=== PATIENT | male | born 1965 | race Caucasian/White ===

== ENCOUNTER 2018-05-20 11:49 | Emergency (ER) | payer MEDICAID ==
[2018-05-20] MEDS ORDERED: Acetaminophen TAB* 325 MG PO ONE (12:04)
[2018-05-20] MEDS ORDERED: Tetan/Diph/Pertus SYR(Tdap)* 0.5 ML SYR(BOOSTRIX) use SYR IM ONE (12:05)
[2018-05-20] MEDS ORDERED: oxyCODONE TAB* 5 MG TAB PO ONE (12:12)
--- NOTE | 2018-05-20 12:12 | ED ---
Head Injury - HPI Summary HPI Summary: 52-year-old male presents with a right arm and head injury today. He states he tripped and fell down one stair. He struck his head and his right shoulder. He has a laceration noted to his right forearm. Unsure when last tetanus was. He has a past medical condition of a closed head injury that resulted in a coma and so he has visual defects at baseline. He admits to loss consciousness with this injury. No neck pain. No chest pain or shortness of breath. Fall was a mechanical fall. No bowel pain. No back pain. He has abrasion noted to his right shoulder. He is right-handed. not on blood thinners. - History Of Current Complaint Chief Complaint: EDLacSutureRecheck Stated Complaint: FALL ARM INJURY Time Seen by Provider: 05/20/18 11:57 Pain Intensity: 6 - Allergies/Home Medications Allergies/Adverse Reactions: Allergies Allergy/AdvReac Type Severity Reaction Status Date / Time No Known Allergies Allergy Verified 05/20/18 11:55 PMH/Surg Hx/FS Hx/Imm Hx Endocrine/Hematology History: Denies: Hx Anticoagulant Therapy Neurological History: Reports: Other Neuro Impairments/Disorders - closed head injury Infectious Disease History: No Infectious Disease History: Denies: Traveled Outside the [place] in Last 30 Days - Family History Known Family History: Positive: Hypertension Review of Systems Negative: Fever Negative: Chest Pain Negative: Shortness Of Breath Positive: Myalgia - right shoulder pain Positive: Other - laceration Positive: Headache All Other Systems Reviewed And Are Negative: Yes Physical Exam Triage Information Reviewed: Yes Vital Signs On Initial Exam: Initial Vitals Temp Pulse Resp BP Pulse Ox 97.0 F 82 18 155/95 97 05/20/18 11:52 05/20/18 11:52 05/20/18 11:52 05/20/18 11:52 05/20/18 11:52 Vital Signs Reviewed: Yes Appearance: Positive: Well-Appearing Skin: Positive: Warm, Dry, Other - 5cm by 1/2cm laceration to right forearm Head/Face: Positive: Normal Head/Face Inspection, Other - contusion to right side of scalp Eyes: Positive: Normal, EOMI, JUAN, Conjunctiva Clear ENT: Positive: Pharynx normal, TMs normal Respiratory/Lung Sounds: Positive: Clear to Auscultation, Breath Sounds Present Cardiovascular: Positive: Normal, RRR Musculoskeletal: Positive: Strength/ROM Intact - right elbow, Limited @ - right shoulder, Other - abrasions to right shoulder, tenderness right shoulder, good pulses, capillary refill<2 secs, sensation grossly intact Neurological: Positive: Sensory/Motor Intact, Alert, Oriented to Person Place, Time, CN Intact II-III Psychiatric: Positive: Normal - [place] Coma Scale Best Eye Response: 4 - Spontaneous Best Motor Response: 6 - Obeys Commands Best Verbal Response: 5 - Oriented Coma Scale Total: 15 Procedures - Laceration/Wound Repair 1 Location: Other - right arm Description: Linear Anesthesia: Local, 1.0% Length, Depth and Shape: 5cm by 1/2cm Irrigated w/ Saline (ccs): 300 Laceration/Wound Explored: no foreign body removed Closure: Skin Adhesive, Single Layer Suture Type: Prolene Number of Sutures: 3 Layer Closure?: No Sterile Dressing Applied?: No - telfa and randi Diagnostics - Vital Signs Vital Signs Temp Pulse Resp BP Pulse Ox 05/20/18 11:52 97.0 F 82 18 155/95 97 - Laboratory Lab Statement: Any lab studies that have been ordered have been reviewed, and results considered in the medical decision making process. - Radiology shoulder Xray Interpretation: No Acute Changes Radiology Interpretation Completed By: Radiologist - CT brain CT Interpretation: No Acute Changes CT Interpretation Completed By: Radiologist Head Injury Course/Dx Course Of Treatment: 52-year-old male presents with a right arm and head injury today. He states he tripped and fell down one stair. He struck his head and his right shoulder. He has a laceration noted to his right forearm. Unsure when last tetanus was. He has a past medical condition of a closed head injury that resulted in a coma and so he has visual defects at baseline. He admits to loss consciousness with this injury. No neck pain. No chest pain or shortness of breath. Fall was a mechanical fall. No bowel pain. No back pain. He has abrasion noted to his right shoulder. He is right-handed. not on blood thinners. on exam contusion to right side scalp. normal neuro exam. has tenderness right shoulder. has 5cm laceration to right forearm that cleaned and placed 3 sutures in and glue. CT brain normal. shoulder xray normal. gave concussion precautions. patient understand and agrees with plan. - Diagnoses Differential Diagnosis/HQI/PQRI: Concussion Without LOC, Contusion, Intracranial Bleed, Laceration Provider Diagnoses: Head injury, Right shoulder pain, Laceration of right forearm Discharge - Sign-Out/Discharge Documenting (check all that apply): Patient Departure - Discharge Plan Condition: Good Disposition: HOME Patient Education Materials: Care For Your Stitches (ED), Head Injury (ED) Referrals: No Primary Care Phys,NOPCP [Primary Care Provider] - Additional Instructions: Take Tylenol or ibuprofen for pain every 6 hours as needed Keep area clean and dry for 24 hours glue will fall of on one Return to ED or primary in 8-10 days to have sutures removed modify activities as tolerate place ice on shoulder Return to ED if develop any new or worsening symptoms - Billing Disposition and Condition Condition: GOOD Disposition: Home
--- NOTE | 2018-05-20 12:54 | RAD ---
HISTORY: head injury, LOC COMPARISONS: None TECHNIQUE: Multiple contiguous axial CT scans were obtained of the head without intravenous contrast. FINDINGS: HEMORRHAGE/INFARCT: There is no hemorrhage or acute infarct. MASSES/SHIFT: There is no mass or shift. EXTRA-AXIAL SPACES: There are no extra-axial fluid collections. SULCI AND VENTRICLES: The sulci and ventricles are normal in size and position for the patient's stated age. CEREBRUM: There are no focal parenchymal abnormalities. BRAINSTEM: There are no focal parenchymal abnormalities. CEREBELLUM: There are no focal parenchymal abnormalities. VESSELS: The vessels are grossly normal. PARANASAL SINUSES: The paranasal sinuses are clear. ORBITS: The orbits are unremarkable. BONES AND SOFT TISSUE: No bone or soft tissue abnormalities are noted. OTHER: None IMPRESSION: NO ACUTE INTRACRANIAL PATHOLOGY.
--- NOTE | 2018-05-20 13:31 | RAD ---
INDICATION: Right shoulder injury. TECHNIQUE: 4 views of the right shoulder were obtained. FINDINGS: The bones are in normal alignment. No fracture is seen. Joint spaces appear maintained. IMPRESSION: NO EVIDENCE OF FRACTURE.
--- NOTE | 2018-05-20 13:31 | RAD ---
INDICATION: Right humerus injury. TECHNIQUE: 2 views of the right humerus were obtained. FINDINGS: The bones are in normal alignment. No fracture is seen. There are postsurgical changes. There are 3 surgical screws present in the distal humerus. IMPRESSION: POSTSURGICAL CHANGES, NO EVIDENCE FOR ACUTE FRACTURE.
[2018-05-20 14:28] VITALS: BP 138/91
== END 2018-05-20 14:00 | disposition home or self-care (01) ==
LOC: ED 11:49
DX: S09.90XA Unspecified injury of head, initial encounter (principal); S41.111A Laceration without foreign body of right upper arm, initial encounter; W01.0XXA Fall on same level from slipping, tripping and stumbling without subsequent striking against object, initial encounter; Y92.9 Unspecified place or not applicable; R51 Headache
CPT/HCPCS: 12002; 70450; 90471; 90715; 99282; A9270-GY

== ENCOUNTER 2019-04-19 07:11 | Inpatient (IN) | payer MEDICAID, OTHER ==
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
[~2019-04-19 07:11] MED LIST: Buffered Lidocaine 1% SYRIN* 1 ML/SYRINGE INTRADERM ONE; Dexamethasone IV* 4 MG/ML 1 ML (4 MG) IV SLOW PU ONE; Famotidine IV* 10 MG/ML 2 ML (20 mg) IV ONE; Gabapentin CAP(*) 300 MG PO ONE; Lactated Ringers 1000 ML Bag* 1,000 ML IV SCH; Tranexamic Acid 1,000 MG in NS 0.9% 50 ML* (outpatient use) IV SCH; celeCOXIB CAP* 200 MG PO ONE
--- OUTSIDE RECORDS SUMMARY | 2019-04-19 07:15 | XMS REPORT | Continuity of Care Document ---
:1965 External Reference #:[id number] Author Name Renée Pearl Care Team Providers Name Role Phone Patient's Choice Primary Care Physician Unavailable Payers Date Identification Numbers Payment Provider Subscriber Policy Number: [id number] Medicaid Raheme Felipe Group Name: 1 1 [address] PayID: [id number] [place] [address] Effective: 2018 Policy Number: [id number] Gavin Felipe Expires: 2018 PayID: [id number] [address] [place] [address] Problems Active Problems Provider Date Difficulty breathing Geovany Vieira MD Onset: 03/21/2019 Screening for malignant neoplasm of colon Geovany Vieira MD Onset: 03/21/2019 Overweight Geovany Vieira MD Onset: 03/21/2019 Preoperative cardiovascular examination Geovany Vieira MD Onset: 03/21/2019 Localized, primary osteoarthritis Oral Cobos M.D. 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 03/07/2019 7.5mg Tablets mouth twice daily. Forearm Crutches M17Dora Cobos M.D. 12/13/2018 Ibuprofen 200 400-600mg every Unknown 200mg 6 hours as Tablets needed for pain. Aleve 1 tab twice a Unknown 220mg Capsules day as needed Medications Administered in Office Medication SIG Qnty Indications Ordering Provider Date Depomedrol 40MG Oral Cobos M.D. 12/13/2018 Injection Depomedrol 40MG Oral Cobos M.D. 12/13/2018 Injection Vital Signs Date Vital Result Comment 03/21/2019 3:31pm Height 76 inches 6'4" Weight 352.00 lb Heart Rate 86 /min BP Systolic 142 mmHg BP Diastolic 98 mmHg O2 % BldC Oximetry 95 % BMI (Body Mass Index) 42.8 kg/m2 03/07/2019 3:28pm Height 76 inches 6'4" Weight 332.00 lb BP Systolic 140 mmHg BP Diastolic 88 mmHg Respiratory Rate 18 /min Pain Level 8 BMI (Body Mass Index) 40.4 kg/m2 12/13/2018 12:57pm Height 76 inches 6'4" Weight 332.00 lb BP Systolic 128 mmHg BP Diastolic 84 mmHg Respiratory Rate 18 /min Body Temperature 97.9 F Pain Level 10 BMI (Body Mass Index) 40.4 kg/m2 Procedures Date Code Description Status 12/13/2018 17723 Inject/Drain Joint/Bursa Major W/O US Completed Encounters Type Date Location Provider Dx Diagnosis Office Visit 03/07/2019 [facility] Cobos M.D. M17.11 Unilateral primary 3[facility], right knee Office Visit 12/13/2018 [facility] Oral Cobos M.D. M17.11 Unilateral primary 2:[facility] oste[facility], right knee M17.12 Unilateral primary osteoarthritis, left knee Z68.41 Body mass index (BMI) 40.0-44.9, adult E66.3 Overweight Plan of Treatment Future Appointment(s):03/28/2019 2:45 pm - Oral Cobos M.[facility]. at [facility]04/19/2019 7:30 am - Oral Cobos M.D. at [facility]03/21/2019 - Geovany Vieira MDZ01.810 Encounter for preprocedural cardiovascular examinationFollow up:as needed.M17.11 Unilateral primary osteoarthritis, right kneeE66.3 HsumxecarwZ70.11 Encounter for screening for malignant neoplasm of colonReferral:Jamey Mcgrath MD, JiglnmcrmvcljtqdI73.83 SnoringNew Orders:Sleep Study, Ordered: 03/21/19Referral:No Doctor Selected
--- OUTSIDE RECORDS SUMMARY | 2019-04-19 07:15 | XMS REPORT | Continuity of Care Document ---
:1965 External Reference #:[id number] Author Name Carli Garcia Care Team Providers Name Role Phone Geovany Vieira MD Primary Care Physician Unavailable Payers Date Identification Numbers Payment Provider Subscriber Policy Number: [id number] Medicaid Raheem Felipe Group Name: 1 1 [address] PayID: [id number] [place] [address] Effective: 2018 Policy Number: [id number] Gavinjose Felipe Expires: 2018 PayID: [id number] [address] [place] [address] Problems Active Problems Provider Date Localized, primary osteoarthritis Oral Cobos M.D. 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 2018 en mouth every 4 5-325mg Tablets hours as needed pain Meloxicam take 1 tablet by 60tabs Sebastian Cobos M.D. 03/07/2019 7.5mg Tablets mouth twice daily. Forearm Crutches Gabe7.James Cobos M.D. 12/13/2018 History Medications Ibuprofen 200 400-600mg every 6 hours Unknown - 03/29/2019 200mg Tablets as needed for pain. Aleve 1 tab twice a day as Unknown - 04/05/2019 220mg Capsules needed Medications Administered in Office Medication SIG Qnty Indications Ordering Provider Date Depomedrol 40MG Oral Cobos M.D. 12/13/2018 Injection Depomedrol 40MG Oral Cobos M.D. 12/13/2018 Injection Vital Signs Date Vital Result Comment 04/05/2019 9:09am Height 76 inches 6'4" Weight 352.00 lb Heart Rate 77 /min BP Systolic 129 mmHg BP Diastolic 90 mmHg O2 % BldC Oximetry 96 % BMI (Body Mass Index) 42.8 kg/m2 03/28/2019 2:40pm Height 76 inches 6'4" Weight 351.00 lb Heart Rate 88 /min BP Systolic 140 mmHg BP Diastolic 90 mmHg Pain Level 8 BMI (Body Mass Index) 42.7 kg/m2 03/21/2019 3:31pm Height 76 inches 6'4" Weight [...] 10 BMI (Body Mass Index) 40.4 kg/m2 Results Test Date Facility Test Result H/L Range Note CBC Auto Diff 03/21/2019 [facility] White Blood 11.2 10^3/uL High 3.5-10.[address] [place] [address] [phone] Red Blood Count 4.79 10^6/uL Normal 4.18-5.48 Hemoglobin 13.0 g/dL Low 14.0-18.0 Hematocrit 39 % Low 42-52 Mean Corpuscular Volume 82 fL Normal 80-94 Mean Corpuscular Hemoglobin 27 pg Normal 27-31 Mean Corpuscular HGB Conc 33 g/dL Normal 31-36 Red Cell Distribution Width 15 % Normal 10-15 Platelet Count 326 10^3/uL Normal 150-450 Mean Platelet Volume 7.5 fL Normal 7.4-10.4 Abs Neutrophils 7.8 10^3/uL High 1.5-7.7 Abs Lymphocytes 2.4 10^3/uL Normal 1.0-4.8 Abs Monocytes 0.7 10^3/uL Normal 0-0.8 Abs Eosinophils 0.1 10^3/uL Normal 0-0.6 Abs Basophils 0.1 10^3/uL Normal 0-0.2 Abs Nucleated RBC 0.0 10^3/uL Granulocyte % 70.1 % Lymphocyte % 21.6 % Monocyte % 6.4 % Eosinophil % 1.0 % Basophil % 0.9 % Nucleated Red Blood Cells % 0.0 Comp Metabolic 03/21/2019 [facility] Sodium 140 mmol/L Normal 135-[address] [place] [address] [phone] Potassium 3.9 mmol/L Normal 3.5-5.0 Chloride 106 mmol/L Normal 101-111 Co2 Carbon Dioxide 26 mmol/L Normal 22-32 Anion Gap 8 mmol/L Normal 2-11 Glucose 102 mg/dL High 70-100 Blood Urea Nitrogen 15 mg/dL Normal 6-24 Creatinine 0.86 mg/dL Normal 0.67-1.17 BUN/Creatinine Ratio 17.4 Normal 8-20 Calcium 9.6 mg/dL Normal 8.6-10.3 Total Protein 7.1 g/dL Normal 6.4-8.9 Albumin 4.4 g/dL Normal 3.2-5.2 Globulin 2.7 g/dL Normal 2-4 Albumin/Globulin Ratio 1.6 Normal 1-3 Total Bilirubin 0.50 mg/dL Normal 0.2-1.0 Alkaline Phosphatase 81 U/L Normal 34-104 Alt 17 U/L Normal 7-52 Ast 21 U/L Normal 13-39 Egfr Non- 93.8 >60 Egfr 113.4 >60 1 Inr/Protime 03/21/2019 [facility] Inr 1.01 Normal 0.82-1.[address] [place] [address] [phone] Urinalysis 03/21/2019 [facility] Urine Yellow Profile [address] [place] [address] [phone] Urine Appearance Cloudy Urine Specific Chase 1.030 Normal 1.010-1.030 Urine pH 5.0 Normal 5-9 Urine Urobilinogen Negative Negative Urine Ketones Negative Negative Urine Protein Negative Negative Urine Leukocytes Negative Negative Urine Blood Negative Negative Urine Nitrite Negative Negative Urine Bilirubin Negative Negative Urine Glucose Negative Negative 1 Because ethnic data is not always readily available, this report includes an eGFR for both -Americans and non- Americans. The National Kidney Disease Education Program (NKDEP) does not endorse the use of the MDRD equation for patients that are not between the ages of 18 and 70, are , have extremes of body size, muscle mass, or nutritional status, or are non- or non-. According to the National Kidney Foundation, irrespective of diagnosis, the stage of the disease is based on the level of kidney function: Stage Description GFR(mL/min/1.73 m(2)) 1 Kidney damage with normal or decreased GFR 90 2 Kidney damage with mild decrease in GFR 60-89 3 Moderate decrease in GFR 30-59 4 Severe decrease in GFR 15-29 5 Kidney failure <15 (or dialysis) 2 Standard intensity warfarin therapeutic range: 2.0-3.0 High intensity warfarin therapeutic range: 2.5-3.5 Procedures Date Code Description Status 03/21/2019 04505 EKG Tracing & Interpretation Completed 12/13/2018 60015 Inject/Drain Joint/Bursa Major W/O US Completed Encounters Type Date Location Provider Dx Diagnosis Office Visit 03/07/2019 [facility] Cobos M.D. M17.11 Unilateral primary 3:[facility] oste[facility], right knee Office Visit 12/13/2018 [facility] Oral Cobos M.D. M17.11 Unilateral primary 2:00[facility] osteoarthritis, right knee M17.12 Unilateral primary osteoarthritis, left knee Z68.41 Body mass index (BMI) 40.0-44.9, adult E66.3 Overweight Plan of Treatment Future Appointment(s):05/30/2019 2:00 pm - Jamey Mcgrath MD at [facility] Neeafbvsfusvjjkk92/13/2019 7:30 am - JOSE Montero at [facility]05/16/2019 10:30 am - Oral Cobos M[facility]. [facility]/19/2019 7:30 am - Oral Cobos M.D. [facility]
--- OUTSIDE RECORDS SUMMARY | 2019-04-19 07:15 | XMS REPORT | Continuity of Care Document ---
:1965 External Reference #:[id number] Author Name Kassidy House Care Team Providers Name Role Phone Patient's Choice Primary Care Physician Unavailable Payers Date Identification Numbers Payment Provider Subscriber Policy Number: [id number] Medicaid Raheem Felipe Group Name: 1 1 [address] PayID: [id number] [place] [address] Effective: 2018 Policy Number: [id number] Gavinjose Felipe Expires: 2018 PayID: [id number] [address] [place] [address] Problems Active Problems Provider Date Ex-smoker Geovany Vieira MD Onset: 03/21/2019 Difficulty breathing [...] a former smoker Unknown Smoking Status Reviewed: 03/28/19 Patient is a former smoker Exercise Type/Frequency Exercises sporadically Allergies, Adverse Reactions, Alerts Description No Known Drug Allergies Medications Active Medications SIG Qnty Indications Ordering Provider Date Oxycodone-Acetaminoph 1-2 tabs by 42tabs M17.11 Oral Cobos M.D. 2018 en mouth every 4 5-325mg Tablets hours as needed pain Meloxicam take 1 tablet by 60tabs M17.11 Oral Cobos M.D. 03/07/2019 7.5mg Tablets mouth twice daily. Forearm Crutches M17.11 Oral Cobos M.D. 12/13/2018 Aleve 1 tab twice a Unknown 220mg Capsules day as needed History Medications Ibuprofen 200 400-600mg every 6 hours Unknown - 03/29/2019 200mg Tablets as needed for pain. Medications Administered in Office Medication SIG Qnty Indications Ordering Provider Date Depomedrol 40MG Oral Cobos M.D. 12/13/2018 Injection Depomedrol 40MG Oral Cobos M.D. 12/13/2018 Injection Vital Signs Date Vital Result Comment 03/28/2019 2:40pm Height 76 inches 6'4" Weight [...] H/L Range Note CBC Auto Diff 03/21/2019 [facility] White Blood 11.2 10^3/uL High 3.5-10.[address] [place] [address] [phone] Red Blood Count 4.79 10^6/uL N 4.18-5.48 Hemoglobin 13.0 g/dL Low 14.0-18.0 Hematocrit 39 % Low 42-52 Mean Corpuscular Volume 82 fL N 80-94 Mean Corpuscular Hemoglobin 27 pg N 27-31 Mean Corpuscular HGB Conc 33 g/dL N 31-36 Red Cell Distribution Width 15 % N 10-15 Platelet Count 326 10^3/uL N 150-450 Mean Platelet Volume 7.5 fL N 7.4-10.4 Abs Neutrophils 7.8 10^3/uL High 1.5-7.7 Abs Lymphocytes 2.4 10^3/uL N 1.0-4.8 Abs Monocytes 0.7 10^3/uL N 0-0.8 Abs Eosinophils 0.1 10^3/uL N 0-0.6 Abs Basophils 0.1 10^3/uL N 0-0.2 Abs Nucleated RBC 0.0 10^3/uL Granulocyte % 70.1 % Lymphocyte % 21.6 % Monocyte % 6.4 % Eosinophil % 1.0 % Basophil % 0.9 % Nucleated Red Blood Cells % 0.0 Comp Metabolic Panel 03/21/2019 [facility] Sodium 140 mmol/L N 135-[address] [place] [address] [phone] Potassium 3.9 mmol/L N 3.5-5.0 Chloride 106 mmol/L N 101-111 Co2 Carbon Dioxide 26 mmol/L N 22-32 Anion Gap 8 mmol/L N 2-11 Glucose 102 mg/dL High 70-100 Blood Urea Nitrogen 15 mg/dL N 6-24 Creatinine 0.86 mg/dL N 0.67-1.17 BUN/Creatinine Ratio 17.4 N 8-20 Calcium 9.6 mg/dL N 8.6-10.3 Total Protein 7.1 g/dL N 6.4-8.9 Albumin 4.4 g/dL N 3.2-5.2 Globulin 2.7 g/dL N 2-4 Albumin/Globulin Ratio 1.6 N 1-3 Total Bilirubin 0.50 mg/dL N 0.2-1.0 Alkaline Phosphatase 81 U/L N 34-104 Alt 17 U/L N 7-52 Ast 21 U/L N 13-39 Egfr Non- 93.8 >60 Egfr 113.4 >60 1 Inr/Protime 03/21/2019 [facility] Inr 1.01 N 0.82-1.[address] [place] [address] [phone] Urinalysis Profile 03/21/2019 [facility] Urine Color Yellow [address] [place] [address] [phone] Urine Appearance Cloudy Urine Specific [place] 1.030 N 1.010-1.030 Urine pH 5.0 N 5-9 Urine Urobilinogen Negative Negative Urine Ketones [...] 2.5-3.5 Procedures Date Code Description Status 03/21/2019 50042 EKG Tracing & Interpretation Completed 12/13/2018 94366 Inject/Drain Joint/Bursa Major W/O US Completed Encounters Type Date Location Provider Dx Diagnosis Office Visit 03/07/2019 Curt Cobos M.D. M17.11 Unilateral primary 3:[facility] osteoarthritis, right knee Office Visit 12/13/2018 Curt Cobos M.D. M17.11 Unilateral primary 2:00[facility] osteoarthritis, right knee M17.12 Unilateral primary osteoarthritis, left knee Z68.41 Body mass index (BMI) 40.0-44.9, adult E66.3 Overweight Plan of Treatment Future Appointment(s):05/16/2019 10:30 am - Oral Cob[facility] at [facility]04/19/2019 7:30 am [facility] - Oral Cobos M.D.M17.11 Unilateral primary osteoarthritis, right kneeNew Medication:Oxycodone-Acetaminophen 5-325 mg - 1-2 tabs by mouth every 4 hours as needed painFollow up:Follow up:
--- OUTSIDE RECORDS SUMMARY | 2019-04-19 07:15 | XMS REPORT | Continuity of Care Document ---
:1965 External Reference #:[id number] Author Name Sophie Connolly Care Team Providers Name Role Phone Patient's Choice Primary Care Physician Unavailable Payers Date Identification Numbers Payment Provider Subscriber Policy Number: [id number] Medicaid Raheem Felipe Group Name: 1 1 [address] PayID: [id number] [place] [address] Effective: 2018 Policy Number: [id number] Gavin Felipe Expires: 2018 PayID: [id number] [address] [place] [address] Problems Active Problems Provider Date Difficulty breathing [...] Indications Ordering Provider Date Oxycodone-Acetaminoph 1-2 tabs po q 4 60tabs M17.11 Oral Cobos M.D. 03/28 en hrs prn pain 5-325mg Tablets Meloxicam take 1 tablet by 60tabs M17.11 Oral Cobos M.D. 03/07/2019 7.5mg Tablets mouth twice daily. Forearm Crutches M17.11 Oral Cobos M.D. 12/13/2018 Ibuprofen 200 400-600mg every [...] H/L Range Note CBC Auto Diff 03/21/2019 [facility] White Blood 11.2 10^3/uL High 3.5-10.[address] [place] [address] [phone] Red Blood Count 4.79 10^6/uL N 4.18-5.48 [...] Cells % 0.0 Comp Metabolic Panel 03/21/2019 [facility] Sodium 140 mmol/L N 135-145 [address] [place] [address] [phone] Potassium 3.9 mmol/L N 3.5-5.0 Chloride 106 [...] >60 Egfr 113.4 >60 1 Inr/Protime 03/21/2019 [facility] Inr 1.01 N 0.82-1.09 [address] [place] [address] [phone] Urinalysis Profile 03/21/2019 [facility] Urine Color Yellow [address] [place] [address] [phone] Urine Appearance Cloudy Urine Specific [place] 1.030 N 1.010-1.030 Urine pH 5.0 N [...] range: 2.5-3.5 Procedures Date Code Description Status 12/13/2018 66992 Inject/Drain Joint/Bursa Major W/O US Completed Encounters Type Date Location Provider Dx Diagnosis Office Visit 03/07/2019 Curt Cobos M.D. M17.11 Unilateral primary 3:[facility], right knee Office Visit 12/13/2018 Curt Cobos M.D. M17.11 Unilateral primary 2:[facility], right knee M17.12 Unilateral primary osteoarthritis, left knee Z68.41 Body mass index (BMI) 40.0-44.9, adult E66.3 Overweight Plan of Treatment Future Appointment(s):05/16/2019 10:30 am - [facility]/05/2019 9:15 am - Ani Lopez NP at [facility]/13/2019 10:00 am - [facility] - Oral Cobos M.D.M17.11 Unilateral primary osteoarthritis, right kneeNew Medication:Oxycodone-Acetaminophen 5-325 mg - 1-2 tabs po q 4 hrs prn painFollow up:Follow up:
[2019-04-19] MEDS ORDERED: Dexamethasone IV* 4 MG/ML 1 ML (4 MG) ONE ×2 (08:40→08:57)
[2019-04-19] MEDS ORDERED: Buffered Lidocaine 1% SYRIN* 1 ML/SYRINGE INTRADERM ONE (08:41)
[2019-04-19] MEDS ORDERED: Famotidine IV* 10 MG/ML 2 ML (20 mg) ONE (08:41)
[2019-04-19] MEDS ORDERED: Gabapentin CAP(*) 300 MG ONE (08:41)
[2019-04-19] MEDS ORDERED: ceFAZolin 1 GM ADVAN(*) 1 GM ADDV.VIAL IVPB ONE (08:41)
[2019-04-19] MEDS ORDERED: celeCOXIB CAP* 200 MG ONE (08:41)
[2019-04-19] MEDS ORDERED: ceFAZolin 2 GM in NS PREMIX(*) 2 GM/100 ML BAG IVPB ONE (08:42)
[2019-04-19] MEDS ORDERED: Midazolam* 1 MG/ML 5 ML VIAL (5 MG) ONE (10:55)
[2019-04-19] MEDS ORDERED: fentaNYL* 50 MCG/ML 2 ML VIAL (100 MCG VIAL) ONE ×7 (10:55→16:23)
[2019-04-19] MEDS ORDERED: ROPIVACAINE 5 MG/ML 30 ML BTL (0.5%) ONE (10:56)
[2019-04-19] MEDS ORDERED: Bupivacaine 0.5% SDV PF* 30ML VIAL ONE (11:21)
[2019-04-19] MEDS ORDERED: Succinylcholine* 20 MG/ML 10 ML VIAL ONE (11:46)
[2019-04-19] MEDS ORDERED: Lidocaine 2% PF * 5 ML VIAL ONE (11:46)
[2019-04-19] MEDS ORDERED: Propofol* 10 MG/ML 20 ML BTL ONE (11:46)
[2019-04-19] MEDS ORDERED: KETAMINE HCL* 50 MG/ML 10 ML VIAL ONE (11:57)
[2019-04-19] MEDS ORDERED: PROCHLORPERAZINE INJ 5 MG/ML 2 ML VIAL IV PRN (12:46)
[2019-04-19] MEDS ORDERED: Naloxone* 0.4 MG/ML 1 ML VIAL IV PRN (12:46)
[2019-04-19] MEDS ORDERED: hydrALAZINE IV* 20 MG/ML VIAL ONE (12:52)
[2019-04-19] MEDS ORDERED: Bupivacaine 0.25% W/EPI* 10 ML SDV ONE (13:53)
[2019-04-19] MEDS ORDERED: Ondansetron INJ* 2 MG/ML VIAL ONE (14:00)
[2019-04-19] MEDS ORDERED: diPHENhydraMINE IV* 50 MG/ML 1 ml VIAL (BENADRYL) IV PRN (14:52)
[2019-04-19] MEDS ORDERED: Ondansetron INJ* 2 MG/ML VIAL IV PRN (14:52)
[2019-04-19] MEDS ORDERED: diPHENhydraMINE PO* 25 MG PO PRN (14:52)
[2019-04-19] MEDS ORDERED: Morphine 4 MG/ML VIAL (1 ml) 4 MG/ML VIAL IV PRN (14:52)
[2019-04-19] MEDS ORDERED: Ondansetron ODT TAB* 4 MG PO PRN (14:52)
[2019-04-19] MEDS ORDERED: Acetaminophen TAB* 325 MG PO SCH (15:00)
[2019-04-19] MEDS ORDERED: oxyCODONE/Acetamin 5/325 MG* TAB ONE (15:33)
[2019-04-19] MEDS: fentaNYL* 50 MCG/ML 2 ML VIAL (100 MCG VIAL) IV PRN ×4 (15:37→16:03)
[2019-04-19] MEDS: oxyCODONE/Acetamin 5/325 MG* TAB PO PRN ×2 (15:39→15:43)
[2019-04-19] MEDS ORDERED: Morphine 4 MG/ML VIAL (1 ml) 4 MG/ML VIAL ONE (16:47)
[2019-04-19] MEDS: Morphine 4 MG/ML VIAL (1 ml) 4 MG/ML VIAL IV PRN ×2 (16:48→16:54)
[2019-04-19] MEDS ORDERED: Morphine INJ* 2 MG/ML 1 ML SYRINGE (TWO MG - NEW SYRINGE VERSION) ONE (17:45)
[2019-04-19] MEDS: Lactated Ringers 1000 ML Bag* 1,000 ML IV SCH (17:46)
[2019-04-19] MEDS: Morphine INJ* 2 MG/ML 1 ML SYRINGE (TWO MG - NEW SYRINGE VERSION) IV PRN ×2 (19:46→23:22)
[2019-04-19] MEDS: ceFAZolin 1 GM ADVAN(*) 1 GM in NS 0.9% 50 ML* 50 ML IVPB SCH (19:47)
[2019-04-19] MEDS: Cyclobenzaprine TAB* 10 MG PO PRN (19:51)
--- NOTE | 2019-04-19 19:52 | OP ---
CC: Dr. Vieira, [facility] Internal Medicine * DATE OF OPERATION: 04/19/19 - ROOM #342 DATE OF : 69 SURGICAL CARE: Right knee. SURGEON: Oral Cobos MD. WOOD CLUB NECK WHIPPER: JOSE Montero. LION TAMER: Jeny Deluca, surgical services director. ANESTHESIOLOGIST: Dr. Tg Puentes. ANESTHESIA: General. Spinal was attempted and was not successful. PRE-OP DIAGNOSIS: Severe arthritis of the right knee with valgus malalignment. POST-OP DIAGNOSIS: Severe arthritis of the right knee with valgus malalignment. OPERATIVE PROCEDURE: Right total knee replacement. COMPONENTS: Persona knee by Carter posterior stabilized type, size 41 patella, size 10 femur cemented, size G tibia cemented, and a small extension was placed on the tibial component. The articular surface is a 10 to match the 10 femur and the G tibia. BLOOD LOSS: 200 mL. REPLACEMENT: Crystalloid fluids. DRAINS: There were no drains. Tranexamic acid was administered at the start of the case. CONDITION: Was stable to the recovery room. INDICATIONS: There is severe knee arthritis with a valgus malalignment. He has been no longer responsive to nonoperative care, which he has tried over several years in [place], [place], and here in [place]. DESCRIPTION OF PROCEDURE: The patient was brought to the operating room after having had a block administered in the holding area. In the operating room, he was in a seated position for the spinal anesthetic, which was not successful. Then into the supine position and a general anesthetic was administered. A Peterson catheter was inserted. The right proximal thigh was wrapped with a tourniquet. The leg was given a preliminary chlorhexidine prep and then a final ChloraPrep from the tourniquet to the tips of the toes. After prepping, draping , and sealing off, we did our universal protocol time-out confirming Raheem Felipe and the plan for right total knee replacement. We all agreed and we proceeded. The surgical care was done without tourniquet until we got to the clean up and cementing phase of the case, and the hip and knee were acutely flexed with the knee on a padded foot piece to help with the acute flexion helping with hemostasis. The skin incision went from 2 fingerbreadths proximal to the superior pole of the patella to the medial aspect of the tibial tubercle. The skin and subcu was divided down to the prepatellar bursa. The knee was then entered medial parapatellar, dividing the soft tissues on the tibia down to bone, approximately 2 cm medial to the tibial tubercle, coming up to the joint line, then medial patella. The knee had abundant, clear, goldish synovial fluid on the quadriceps mechanism. We stayed in the tendon and stayed as close to vastus medialis muscle as possible, but in the tendon going 3 to 4 cm proximal to the superior pole of the patella. The patella was so it could be subluxated laterally and then everted. The remains of the medial meniscus were excised. The anteromedial soft tissues on the tibia were elevated subperiosteally going around to the deep MCL and then to the posteromedial corner of the knee. The patellar tendon was not disturbed at the tubercle. The osteophytes were large on the patella, the trochlea, medial condyle, lateral femoral condyle, and the intercondylar notch. The intercondylar osteophytes were removed. The ACL and PCL were uplifted from their femoral origins. The tibia was , so it could be subluxated from under the knee. The anterior horn of the lateral meniscus was removed going more posteriorly. The meniscus was not in continuity from the articulation with a severely arthritic lateral compartment. There was complete eburnation of bone, lateral femoral condyle, lateral tibial plateau a little posteriorly with no cartilage left whatsoever. Great care was taken while working posteriorly and careful hemostasis was achieved. The PCL was carefully excised. The proximal tibial cut was made first. Our goal here was to have a tibial surface that would be perpendicular to the long axis of the tibia and have a slight posterior slope, trying to remove a couple of millimeters at the lowest point on the lateral tibial plateau and 3 to 4 or 5 mm on the medial side. After this cut was made, then the femoral intramedullary drill was utilized. The canal was opened. The canal was suctioned carefully to discourage embolization. The distal femoral cutting guide was applied on 1 for slight flexion contracture of the knee and 6 degrees of valgus. The distal femoral cut was completed. The knee was then tight in extension with a 10-mm block and I recut the femur by 2 mm. The femur was then measured for a size 10. The anterior, posterior, and chamfering cuts were completed on the femur. We then completed removal of the posterior horn of the lateral meniscus; osteophytes on the posteromedial, medial and lateral condyles; the PCL; the posterior horn medial meniscus; posterior horn lateral meniscus; and carefully preserving the MCL. At this stage, we were tight laterally in flexion, and I did a lateral pie-crusting release with a 15-blade anterior and inferior to the popliteus with enough loosening to make it very satisfactory and it was satisfactory in extension also with a 10-mm block. The femur was completed as stated for the size 10. The femoral canal was cleaned x6 with pulse saline, suctioned empty, bone plug inserted. The tibia was completed for the size G. The knee was articulated and extended with a G tibia, 10 articular surface, and the 10 femur with full knee extension, satisfactory overall alignment and extension, and flexion stable at 90 degrees and flexion to 125 degrees. The patella was cut flat, a 41 was chosen, three drill holes were made, and these were undercut and a drill hole was made in the eburnated portion of the patella that remained for cement. The leg was then exsanguinated with tourniquet and the thigh tourniquet elevated to 300. The knee was cleaned entirely in extension with pulse saline and then the knee was cleaned in flexion, all the bony surfaces with pulse saline. All surfaces were dried. The cement was mixed and the components were cemented into position, patella, followed by tibia, followed by femur. Each was impacted, excess cement was removed, and the knee was articulated and extended during the final hardening. After that, we removed all excess cement once again disarticulating the knee and removing cement medial, lateral, and the posterior area in between the lateral condyle and the lateral articular surface. The pericapsular tissues were infiltrated with 0.25% Marcaine with epinephrine, 30 cc in total, some posteromedial, some medial, and some lateral. The knee was then extended and hemostasis checked and achieved with electrocautery. We irrigated several times during closure with pulse saline. The quad mechanism reapproximated with interrupted #1 Vicryl in [id number] fashion, the same with medial retinaculum, more distally we used 0 Vicryl. The deep fascia and subcu closed with 0 Vicryl and then the superficial subcu closed with 3-0 Vicryl. The knee was flexed and extended multiple times during the closure and after we closed the quad mechanism completely to ensure optimal flexion and extension during the rehab. The superficial subcu closed with 3-0 Polysorb, skin was washed and was closed with bill. Everything was then washed, dried, Betadine-soaked release applied, then sterile gauze, sterile Webril, cryotherapy cuff, ABD pads, and then a 6-inch Jaya bandage loosely applied. The patient was returned to the recovery room in stable and satisfactory condition having tolerated the procedure very well. [id number]/CPS #: [id number] MTDD
[2019-04-19] MEDS: Docusate CAP* 100 MG PO SCH (22:29)
[2019-04-19] MEDS: Magnesium Hydroxide LIQ* 30 ML UDC PO SCH (22:30)
[2019-04-19] MEDS: Acetaminophen TAB* 325 MG PO SCH (22:39)
[2019-04-19] MEDS: traMADol TAB* 50 MG PO PRN (22:39)
[2019-04-19] MEDS: oxyCODONE TAB* 5 MG TAB PO PRN (23:21)
[2019-04-20] MEDS: Cyclobenzaprine TAB* 10 MG PO PRN ×2 (04:09→20:33)
[2019-04-20] MEDS: oxyCODONE TAB* 5 MG TAB PO PRN ×5 (04:09→20:33)
[2019-04-20] MEDS: ceFAZolin 1 GM ADVAN(*) 1 GM in NS 0.9% 50 ML* 50 ML IVPB SCH ×2 (04:12→11:59)
[2019-04-20] MEDS: Lactated Ringers 1000 ML Bag* 1,000 ML IV SCH (04:15)
[2019-04-20] MEDS: traMADol TAB* 50 MG PO PRN ×2 (06:19→12:39)
[2019-04-20] MEDS: Acetaminophen TAB* 325 MG PO SCH ×3 (06:20→22:21)
[2019-04-20 06:42] LABS: Hematocrit 34 % (42-52); Hemoglobin 11.5 g/dL (14.0-18.0); Mean Platelet Volume 7.5 fL (7.4-10.4); Platelet Count 299 10^3/uL (150-450)
[2019-04-20 06:59] LABS: BUN/Creatinine Ratio 20.3 (8-20); Calcium 8.9 mg/dL (8.6-10.3); EGFR African American 146.3 (>60); EGFR Non-African American 120.9 (>60); Potassium 3.9 mmol/L (3.5-5.0)
[2019-04-20] MEDS: Morphine INJ* 2 MG/ML 1 ML SYRINGE (TWO MG - NEW SYRINGE VERSION) IV PRN (07:58)
[2019-04-20] MEDS: Multivitamins/Minerals TAB PO SCH (08:42)
[2019-04-20] MEDS: Docusate CAP* 100 MG PO SCH ×2 (08:42→20:33)
[2019-04-20] MEDS: Magnesium Hydroxide LIQ* 30 ML UDC PO SCH ×2 (08:43→20:34)
[2019-04-20] MEDS: Pantoprazole TAB * 40 MG TAB PO SCH (08:43)
[2019-04-20] MEDS: Aspirin TAB* 325 MG PO SCH (08:43)
[2019-04-20] MEDS: Calcium Polycarbophil TAB* 625 MG PO SCH (08:46)
[2019-04-20] MEDS ORDERED: oxyCODONE TAB* 5 MG TAB PO PRN (13:31)
[2019-04-20] MEDS ORDERED: traMADol TAB* 50 MG PO PRN (13:32)
[2019-04-20] MEDS ORDERED: Ketorolac INJ* 30 MG/ML 1 ML VIAL IV PUSH ONE (13:32)
--- NOTE | 2019-04-20 14:00 | PN ---
Progress Note - Progress Note Date of Service: 04/20/19 SOAP: Subjective: []Pt seen and examined at bedside. His right knee is painful rated 9/10. Denies CP, SOB, dizziness, nausea, hx blood clot. Objective: []Gen: Appears well, NAD RLE: Right knee dressing CDI, thigh soft, DF/PF intact, DP2+, sensation intact to light touch distally Calves supple and nontender without erythema, edema or palpable cords Assessment: []POD 1 SP RTK Plan: []WBAT PT.OT DVT prophy: SCDs, early mobilization, Aspirin 325 mg po QD x 30 days post op. If slow to mobilize may consider more aggressive DVT prophy Added oxycodone 10 mg tabs and a dose of toradol 30 mg IV for pain control Vital Signs Temp 98.7 F 04/20/19 11:17 Pulse 93 04/20/19 11:17 Resp 20 04/20/19 12:39 BP 126/70 04/20/19 11:17 Pulse Ox 95 04/20/19 11:17 Intake & Output 04/19/19 04/20/19 04/20/19 18:59 06:59 18:59 Intake Total 2200 2215 480 Output Total 250 1225 250 Balance 1950 990 230 Weight 342 lb Intake: IV Fluids 2200 975 ABX - CEFAZOLIN 63 LR 2200 912 Oral 1240 480 Output: Urine 250 Peterson 250 1225 Laboratory Last Values Hgb 11.5 g/dL (14.0-18.0) L 04/20/19 06:22 Hct 34 % (42-52) L 04/20/19 06:22 Plt Count 299 10^3/uL (150-450) 04/20/19 06:22 MPV 7.5 fL (7.4-10.4) 04/20/19 06:22 Sodium 137 mmol/L (135-145) 04/20/19 06:22 Potassium 3.9 mmol/L (3.5-5.0) 04/20/19 06:22 Chloride 104 mmol/L (101-111) 04/20/19 06:22 Carbon Dioxide 25 mmol/L (22-32) 04/20/19 06:22 Anion Gap 8 mmol/L (2-11) 04/20/19 06:22 BUN 14 mg/dL (6-24) 04/20/19 06:22 Creatinine 0.69 mg/dL (0.67-1.17) 04/20/19 06:22 Est GFR ( Amer) 146.3 (>60) 04/20/19 06:22 Est GFR (Non-Af Amer) 120.9 (>60) 04/20/19 06:22 BUN/Creatinine Ratio 20.3 (8-20) H 04/20/19 06:22 Glucose 126 mg/dL (70-100) H 04/20/19 06:22 Calcium 8.9 mg/dL (8.6-10.3) 04/20/19 06:22
[2019-04-21] MEDS: oxyCODONE TAB* 5 MG TAB PO PRN ×3 (01:16→18:13)
[2019-04-21] MEDS: Morphine INJ* 2 MG/ML 1 ML SYRINGE (TWO MG - NEW SYRINGE VERSION) IV PRN ×2 (01:17→03:42)
[2019-04-21] MEDS: Cyclobenzaprine TAB* 10 MG PO PRN ×2 (02:50→13:05)
[2019-04-21] MEDS: Acetaminophen TAB* 325 MG PO SCH ×2 (05:30→12:21)
[2019-04-21 06:05] LABS: Hematocrit 31 % (42-52); Hemoglobin 10.2 g/dL (14.0-18.0); Mean Platelet Volume 7.3 fL (7.4-10.4); Platelet Count 268 10^3/uL (150-450)
[2019-04-21] MEDS: Magnesium Hydroxide LIQ* 30 ML UDC PO SCH (08:30)
[2019-04-21] MEDS: Calcium Polycarbophil TAB* 625 MG PO SCH (08:30)
[2019-04-21] MEDS: Aspirin TAB* 325 MG PO SCH (08:30)
[2019-04-21] MEDS: Pantoprazole TAB * 40 MG TAB PO SCH (08:31)
[2019-04-21] MEDS: Multivitamins/Minerals TAB PO SCH (08:31)
[2019-04-21] MEDS: Docusate CAP* 100 MG PO SCH (08:31)
[2019-04-21] MEDS ORDERED: Bisacodyl SUPP* 10 MG SUPP PR PRN (09:47)
[2019-04-21] MEDS: oxyCODONE/Acetamin 5/325 MG* TAB PO PRN ×2 (10:21→15:21)
--- NOTE | 2019-04-21 10:48 | DS ---
Orthopedic Discharge Summary - Discharge Summary Date of Admission:04/19/19 Date of Discharge: 04/21/19 Date of Surgery: 04/19/19 Attending Orthopedic Provider: Dr. Cobos Pre-operative Diagnosis: Degenerative arthritis right knee Operative Procedure: Right total knee arthroplasty Disposition of Patient: home Condition of Patient: stable History: MADHAV WATKINS is a 53 year old M with years of increasingly severe right knee pain. Patient has failed conservative management and has elected to undergo a right total knee replacement Hospital Course: MADHAV was admitted to [facility] on 04/19/19. Patient underwent a right total knee without complication followed by a brief recovery in PACU and transfer to the Short Stay Surgical Unit in stable condition. Our hospitalist service, physical therapy and occupational therapy also participated in this patients care. Post-op day 1: patient was alert and in no acute distress. Dressing was clean, dry and intact. Operative extremity dorsiflexion and plantarflexion intact, sensation intact to light touch distally , DP2+. Post-op day two: dressing was changed, incision was clean, dry and intact. Patient was deemed to be medically and orthopedically stable for discharge. Physical therapy goals were met. Home Medications Medication Instructions Recorded Confirmed Type Mv-Min/Iron/Folic/Calcium/Vitk 1 tab PO QAM 04/08/19 04/19/19 History [One-A-Day Women's Tablet] Omeprazole 40 mg PO DAILY 04/08/19 04/19/19 History oxyCODONE/Acetam5/325MG PREPAK 1 - 2 tab PO Q4H PRN 04/08/19 04/19/19 History [Percocet 5/325 TAB*] Fiber 1 tab PO DAILY 04/19/19 04/19/19 History Aspirin TAB* [Aspirin 325 MG TAB*] 325 mg PO DAILY #30 tab 04/21/19 Rx Docusate CAP* [Colace Cap*] 100 mg PO BID cap 04/21/19 Rx oxyCODONE/Acetamin 5/325 MG* 1 - 2 tab PO Q4H PRN #70 tab MDD 10 04/21/19 Rx [Percocet 5/325 TAB*] Discharge Instructions following Orthopedic Surgery: Activity: * Weight Bearing as tolerated * Continue physical therapy and occupational therapy exercises as shown Wound care: * OK to shower on post-op day 3, no bathing, swimming, or submerging wound. * Use gentle soap, pat dry. Cover with gauze, neosporine and KARLA wrap. * Visiting home nurse to do wound checks. Call Orthopedic office for: * Increased drainage * Redness * Increased pain * Fever Go to ER with shortness of breath or chest pain. Diet: * Regular diet * Increase fluids and fiber to prevent constipation. * Continue to use stool softeners, call office if no bowel motion within 48 hours. Medications See Home Medication List in your packet for medications that you should take after discharge. DVT Prophylaxis: Aspirin Dosin mg twice a day for 30 days post operatively Pain Control: Percocet Dosin/325 mg 1-2 tabs by mouth every 4-6 hours as needed for pain. Maximum of 10 tabs per day. Please note that Percocet contains Tylenol (acetaminophen). Maximum daily dose of Tylenol is 4000 mg from all sources. Antibiotics are required prior to any dental work. FOLLOW UP: Follow up with [[facility]] Within 2-3 weeks , call for appointment Please call our office with any questions or concerns ([phone])
[2019-04-21] MEDS ORDERED: Ketorolac INJ* 30 MG/ML 1 ML VIAL IV PUSH ONE (12:00)
[2019-04-21 15:50] VITALS: BP 131/77
== END 2019-04-21 19:00 | disposition home or self-care (01) | DRG 302 ==
LOC: AA 07:11 → SSU 17:56
PROVIDERS: ADMIT Orthopaedic Surgery; ATTEND Orthopaedic Surgery
PROC: 0SRC0J9 Replacement of Right Knee Joint with Synthetic Substitute, Cemented, Open Approach (ICD-10-PCS; principal; 2019-04-19 10:30)
DX: M17.0 Bilateral primary osteoarthritis of knee (principal); Z68.41 Body mass index [BMI] 40.0-44.9, adult; M25.761 Osteophyte, right knee; M21.061 Valgus deformity, not elsewhere classified, right knee; E66.3 Overweight; Z79.82 Long term (current) use of aspirin; Z82.49 Family history of ischemic heart disease and other diseases of the circulatory system; Z82.3 Family history of stroke; Z82.61 Family history of arthritis; Z87.891 Personal history of nicotine dependence; Z91.030 Bee allergy status; Z87.820 Personal history of traumatic brain injury
CPT/HCPCS: 36415; 80048; 85014; 85018; 85049; 88305; 88311; A9270-GY; C1776; J0330; J0360; J0690; J1100; J1885; J2250; J2270; J2405; J2704; J2795; J3010; J3490